=== PATIENT | female | born 1990 ===

== ENCOUNTER 2021-06-30 14:11 | Inpatient (IN) | payer BC ==
[2021-06-30 15:30] LABS: SARS-CoV-2 NAA Rapid Test DETECTED (NotDetected)
[2021-06-30 15:35] LABS: Hemoglobin 12.9 g/dL (12.0-15.5); Mean Corpuscular HGB CONC 35.4 g/dL (32.0-36.0); Mean Corpuscular Hemoglobin 33.6 pg (27.0-33.0); Mean Corpuscular Volume 94.8 fl (81.6-98.3); Mean Platelet Volume 9.6 fl (7.4-10.4); Platelet Count 171 10x3/uL (150-450); RBC Distribution Width 11.9 % (11.5-14.5); Red Blood Cell (RBC) Count 3.84 10x6/uL (3.90-5.03)
[2021-06-30 15:36] LABS: MDiff Complete? YES; Manual Diff?? YES
[2021-06-30 15:40] LABS: ALT (SGPT) 19 U/L (8-55); AST (SGOT) 28 U/L (5-34); Albumin 3.1 g/dL (3.5-5.0); Alkaline Phosphatase 118 U/L (40-110); Anion Gap 19 mmol/L (10-20); BUN (Urea Nitrogen) 7 mg/dL (7.0-18.7); Calc. Creatinine Clearance 0 mL/min (70-130); Calcium 8.7 mg/dL (7.8-10.44); Carbon Dioxide 11 mmol/L (22-29); Chloride 112 mmol/L (98-107); Globulin 3.3 g/dL (2.4-3.5); Glucose 77 mg/dL (70-105); Potassium 3.5 mmol/L (3.5-5.1); Protein, Total 6.4 g/dL (6.0-8.3); Sodium 138 mmol/L (136-145)
[2021-06-30 16:17] LABS: Band 2 % (5-11); Lymphocytes 4 % (21-51); Metamyelocyte 2 % (0-0); Monocytes 3 % (0-10); Myelocyte 1 % (0-0)
[2021-06-30 16:19] LABS: Neutrophil 88 % (42-75); Platelet Morphology Comment Appears Adequate; RBC Morphology Normal
[2021-06-30] MEDS ORDERED: Dexamethasone 10 MG/ML VIAL ONE (18:32)
[2021-06-30] MEDS ORDERED: Acetaminophen 325 MG TAB PO PRN (20:38)
[2021-06-30] MEDS ORDERED: GUAIFENESIN SF SOLN 200 MG/10 ML UDCUP PO PRN (20:39)
[2021-06-30 21:06] LABS: Lactic Acid 0.5 mmol/L (0.5-2.2)
[2021-06-30 21:48] VITALS: BMI 28.0
[2021-06-30] MEDS ORDERED: Lactated Ringer's 1,000 ML IV SCH (22:00)
[2021-06-30] MEDS ORDERED: Enoxaparin Sodium 40 MG/0.4 ML SYRINGE SC SCH (22:00)
[2021-07-01 04:37] LABS: ALV-art Gradient 123.185 mmHg (0-20); Actual Bicarbonate (HCO3a) 9.1 mEq/L (22-28); Base Excess (BEa) -15.8 mEq/L (-2.0 to +3.0); CO2 Tension 20.7 mmHg (35.0-45.0); Calcium, Ionized (arterial) 1.23 mmol/L (1.12-1.30); Carboxyhemoglobin (COHb) 0.3 gm% (0.0-3.0); Hemoglobin (Hb) 13.7 g/dL (12.0-16.0); O2 Tension (PaO2), arterial 79.1 mmHg (80.0-100.0); Potassium - ABG Lab 4.1 mmol/L (3.70-5.30); Puncture Site RRA; pH, Arterial 7.26 (7.35-7.45)
[2021-07-01 05:15] LABS: Bilirubin Neg (Negative); Blood, Urine Negative (Negative); Clarity Clear (Clear); Glucose, Urine (Dipstick) Normal (Negative); Ketone, Urine 150 mg/dL (Negative); Leukocyte 25 (Negative); Nitrite Negative (Negative); Protein, Urine (Dipstick) 100 mg/dl (Neg-Trace); Specific Gravity, Urine 1.025 (1.002-1.036)
[2021-07-01 06:33] LABS: Bacteria/HPF 1+ HPF (None Seen); RBC/HPF 0-3 HPF (0-3)
[2021-07-01 06:40] LABS: ALT (SGPT) 20 U/L (8-55); AST (SGOT) 27 U/L (5-34); Albumin 3.1 g/dL (3.5-5.0); Alkaline Phosphatase 123 U/L (40-110); Anion Gap 18 mmol/L (10-20); BUN (Urea Nitrogen) 8 mg/dL (7.0-18.7); CRP (Inflammatory) 20.31 mg/dL (= or < 0.5); Calc. Creatinine Clearance 121 mL/min (70-130); Calcium 9.1 mg/dL (7.8-10.44); Chloride 116 mmol/L (98-107); Globulin 3.4 g/dL (2.4-3.5); Glucose 94 mg/dL (70-105); Potassium 4.1 mmol/L (3.5-5.1); Protein, Total 6.5 g/dL (6.0-8.3); Sodium 138 mmol/L (136-145)
[2021-07-01 06:42] LABS: Hemoglobin 13.2 g/dL (12.0-15.5); Mean Corpuscular HGB CONC 33.9 g/dL (32.0-36.0); Mean Corpuscular Hemoglobin 32.8 pg (27.0-33.0); Mean Corpuscular Volume 96.8 fl (81.6-98.3); Mean Platelet Volume 9.5 fl (7.4-10.4); Platelet Count 201 10x3/uL (150-450); RBC Distribution Width 12.1 % (11.5-14.5); Red Blood Cell (RBC) Count 4.02 10x6/uL (3.90-5.03); White Blood Cell (WBC) Count 11.4 10x3/uL (3.5-10.5)
[2021-07-01 06:50] LABS: Carbon Dioxide 8 mmol/L (22-29)
[2021-07-01 07:16] LABS: Band 9 % (5-11); Lymphocytes 8 % (21-51); Metamyelocyte 2 % (0-0); Monocytes 5 % (0-10); Myelocyte 6 % (0-0); Reactive Lymphocytes 1 % (0-10)
[2021-07-01 07:17] LABS: Large Platelets SLIGHT; Neutrophil 69 % (42-75); Platelet Morphology Comment Appears Adequate
[2021-07-01 07:18] LABS: Manual Diff?? YES
[2021-07-01 07:22] LABS: MDiff Complete? YES; RBC Morphology Normal
[2021-07-01] MEDS: Ascorbic Acid 500 mg Chewable Tablet PO SCH (08:33)
[2021-07-01] MEDS: Cholecalciferol 1,000 UNITS (25 MCG) TAB PO SCH (08:33)
[2021-07-01] MEDS: Dexamethasone 4 mg/ml Vial SLOW IVP SCH (08:35)
[2021-07-01] MEDS: Enoxaparin Sodium 40 MG/0.4 ML SYRINGE SC SCH (08:35)
[2021-07-01] MEDS: Prenatal Vitamin 1 TAB PO SCH (08:35)
[2021-07-01] MEDS: Famotidine 20 MG TAB PO SCH (08:35)
[2021-07-01] MEDS ORDERED: REMDESIVIR 200 MG in Sodium Chloride 0.9% 250 ML 210 ML IV SCH (09:00)
[2021-07-01] MEDS ORDERED: Sodium Bicarb 50 MEQ/50 ML VIAL IVP SCH (10:00)
[2021-07-01] MEDS ORDERED: Lactated Ringer's 500 ML IV SCH (10:15)
[2021-07-01] MEDS: Ondansetron PF 4 MG/2 ML Vial IVP PRN (10:42)
[2021-07-01] MEDS: Sodium Bicarbonate 150 MEQ in Dextrose 5% in Water 1,000 ML IV SCH (11:57)
[2021-07-01 13:13] LABS: ALT (SGPT) 18 U/L (8-55); AST (SGOT) 25 U/L (5-34); Albumin 2.8 g/dL (3.5-5.0); Alkaline Phosphatase 114 U/L (40-110); Anion Gap 18 mmol/L (10-20); BUN (Urea Nitrogen) 9 mg/dL (7.0-18.7); CK (CPK) 83 U/L (29-168); Calc. Creatinine Clearance 127 mL/min (70-130); Calcium 8.8 mg/dL (7.8-10.44); Chloride 116 mmol/L (98-107); Globulin 3.1 g/dL (2.4-3.5); Glucose 97 mg/dL (70-105); Potassium 4.1 mmol/L (3.5-5.1); Protein, Total 5.9 g/dL (6.0-8.3); Sodium 138 mmol/L (136-145)
[2021-07-01 13:28] LABS: Carbon Dioxide 8 mmol/L (22-29)
[2021-07-01] MEDS ORDERED: Dextrose 5% in Water 1,000 ML ONE (13:54)
[2021-07-01 18:25] LABS: Anion Gap 17 mmol/L (10-20); BUN (Urea Nitrogen) 9 mg/dL (7.0-18.7); Calc. Creatinine Clearance 138 mL/min (70-130); Calcium 8.8 mg/dL (7.8-10.44); Carbon Dioxide 12 mmol/L (22-29); Chloride 112 mmol/L (98-107); Glucose 118 mg/dL (70-105); Potassium 3.7 mmol/L (3.5-5.1); Sodium 137 mmol/L (136-145)
[2021-07-01] MEDS: cefTRIAXone\\ROCEPHIN 1 GM in Sodium Chloride 0.9% 100 ML IVPB SCH (18:49)
[2021-07-01 19:56] LABS: Actual Bicarbonate (HCO3a) 16.7 mEq/L (22-28); Base Excess (BEa) -6.5 mEq/L (-2.0 to +3.0); CO2 Tension 26.7 mmHg (35.0-45.0); Calcium, Ionized (arterial) 1.17 mmol/L (1.12-1.30); Carboxyhemoglobin (COHb) 0.3 gm% (0.0-3.0); O2 Tension (PaO2), arterial 98.4 mmHg (80.0-100.0); Potassium - ABG Lab 3.6 mmol/L (3.70-5.30); Puncture Site RRA; pH, Arterial 7.41 (7.35-7.45)
[2021-07-01 19:58] LABS: ALV-art Gradient 96.385 mmHg (0-20)
[2021-07-02] MEDS: Famotidine 20 MG TAB PO SCH ×3 (01:29→21:07)
[2021-07-02] MEDS: Enoxaparin Sodium 40 MG/0.4 ML SYRINGE SC SCH ×3 (01:29→21:08)
[2021-07-02] MEDS: Ondansetron PF 4 MG/2 ML Vial IVP PRN ×2 (01:29→11:47)
[2021-07-02 06:50] LABS: ALT (SGPT) 16 U/L (8-55); AST (SGOT) 22 U/L (5-34); Albumin 2.5 g/dL (3.5-5.0); Alkaline Phosphatase 99 U/L (40-110); Anion Gap 14 mmol/L (10-20); BUN (Urea Nitrogen) 13 mg/dL (7.0-18.7); Bilirubin, Total 0.7 mg/dL (0.2-1.2); Calc. Creatinine Clearance 148 mL/min (70-130); Calcium 8.5 mg/dL (7.8-10.44); Carbon Dioxide 16 mmol/L (22-29); Chloride 112 mmol/L (98-107); Globulin 2.8 g/dL (2.4-3.5); Glucose 90 mg/dL (70-105); Potassium 3.5 mmol/L (3.5-5.1); Protein, Total 5.3 g/dL (6.0-8.3); Sodium 138 mmol/L (136-145)
[2021-07-02 06:52] LABS: Hemoglobin 11.8 g/dL (12.0-15.5); Mean Corpuscular HGB CONC 34.9 g/dL (32.0-36.0); Mean Corpuscular Hemoglobin 32.9 pg (27.0-33.0); Mean Corpuscular Volume 94.2 fl (81.6-98.3); Mean Platelet Volume 9.2 fl (7.4-10.4); Platelet Count 230 10x3/uL (150-450); RBC Distribution Width 11.8 % (11.5-14.5); Red Blood Cell (RBC) Count 3.59 10x6/uL (3.90-5.03)
[2021-07-02] MEDS: Lactated Ringer's 1,000 ML IV SCH ×4 (07:52→22:34)
[2021-07-02] MEDS ORDERED: Potassium Chloride 20 MEQ TAB PO SCH (08:00)
[2021-07-02] MEDS: Prenatal Vitamin 1 TAB PO SCH (08:02)
[2021-07-02] MEDS: Ascorbic Acid 500 mg Chewable Tablet PO SCH (08:02)
[2021-07-02] MEDS: Cholecalciferol 1,000 UNITS (25 MCG) TAB PO SCH (08:02)
[2021-07-02] MEDS: Dexamethasone 4 mg/ml Vial SLOW IVP SCH (08:02)
[2021-07-02 08:16] LABS: Band 9 % (5-11); Lymphocytes 6 % (21-51); Metamyelocyte 6 % (0-0); Monocytes 5 % (0-10); Myelocyte 5 % (0-0); Neutrophil 68 % (42-75); Reactive Lymphocytes 1 % (0-10)
[2021-07-02 08:17] LABS: MDiff Complete? YES; Manual Diff?? YES; Platelet Morphology Comment Appears Adequate; Small Platelets MODERATE
[2021-07-02 08:18] LABS: RBC Morphology Normal
[2021-07-02] MEDS: Sodium Bicarbonate 150 MEQ in Dextrose 5% in Water 1,000 ML IV SCH (11:47)
[2021-07-02] MEDS: REMDESIVIR 100 MG in Sodium Chloride 0.9% 250 ML 230 ML IV SCH (11:47)
[2021-07-02 12:28] VITALS: TEMP 97.7
[2021-07-02 13:09] VITALS: BP 107/60
[2021-07-02] MEDS ORDERED: Mometasone Furoate 30 PUFF 220 MCG INH SCH (18:30)
[2021-07-02] MEDS: cefTRIAXone\\ROCEPHIN 1 GM in Sodium Chloride 0.9% 100 ML IVPB SCH (18:34)
[2021-07-02] MEDS: Mometasone Furoate 30 PUFF 220 MCG INH SCH (20:30)
[2021-07-02 20:33] LABS: Anion Gap 13 mmol/L (10-20); BUN (Urea Nitrogen) 13 mg/dL (7.0-18.7); Calc. Creatinine Clearance 131 mL/min (70-130); Calcium 8.3 mg/dL (7.8-10.44); Carbon Dioxide 21 mmol/L (22-29); Chloride 110 mmol/L (98-107); Glucose 119 mg/dL (70-105); Potassium 3.7 mmol/L (3.5-5.1); Sodium 140 mmol/L (136-145)
[2021-07-03 07:01] LABS: Hemoglobin 11.5 g/dL (12.0-15.5); Mean Corpuscular HGB CONC 34.8 g/dL (32.0-36.0); Mean Corpuscular Volume 94.8 fl (81.6-98.3); Mean Platelet Volume 9.1 fl (7.4-10.4); Phosphorus 2.5 mg/dL (2.3-4.7); Platelet Count 239 10x3/uL (150-450); RBC Distribution Width 11.6 % (11.5-14.5); Red Blood Cell (RBC) Count 3.48 10x6/uL (3.90-5.03)
[2021-07-03 07:03] LABS: Anion Gap 11 mmol/L (10-20); BUN (Urea Nitrogen) 14 mg/dL (7.0-18.7); CRP (Inflammatory) 2.57 mg/dL (= or < 0.5); Calc. Creatinine Clearance 148 mL/min (70-130); Calcium 8.2 mg/dL (7.8-10.44); Carbon Dioxide 23 mmol/L (22-29); Chloride 110 mmol/L (98-107); Glucose 83 mg/dL (70-105); Magnesium 1.8 mg/dL (1.6-2.6); Potassium 3.5 mmol/L (3.5-5.1); Sodium 140 mmol/L (136-145)
[2021-07-03] MEDS: Mometasone Furoate 30 PUFF 220 MCG INH SCH ×2 (07:40→20:15)
[2021-07-03 08:04] LABS: Band 7 % (5-11); Lymphocytes 11 % (21-51); Metamyelocyte 2 % (0-0); Myelocyte 5 % (0-0); Reactive Lymphocytes 5 % (0-10)
[2021-07-03 08:06] LABS: Monocytes 4 % (0-10); Neutrophil 66 % (42-75)
[2021-07-03 08:08] LABS: Dohle Bodies SLIGHT; Large Platelets SLIGHT; Platelet Morphology Comment Appears Adequate; Toxic Granulation SLIGHT
[2021-07-03 08:09] LABS: MDiff Complete? YES; Manual Diff?? YES; RBC Morphology Normal
[2021-07-03] MEDS: Famotidine 20 MG TAB PO SCH ×2 (10:00→21:14)
[2021-07-03] MEDS ORDERED: Magnesium 2 GM/50 ML 2 GM in Premix Bag 1 BAG IVPB SCH (10:00)
[2021-07-03] MEDS ORDERED: Potassium Chloride 20 MEQ TAB PO SCH (10:00)
[2021-07-03] MEDS: Enoxaparin Sodium 40 MG/0.4 ML SYRINGE SC SCH ×2 (10:20→21:15)
[2021-07-03] MEDS: Dexamethasone 4 mg/ml Vial SLOW IVP SCH (10:20)
[2021-07-03] MEDS: Cholecalciferol 1,000 UNITS (25 MCG) TAB PO SCH (10:21)
[2021-07-03] MEDS: Ascorbic Acid 500 mg Chewable Tablet PO SCH (10:21)
[2021-07-03] MEDS: REMDESIVIR 100 MG in Sodium Chloride 0.9% 250 ML 230 ML IV SCH (11:17)
[2021-07-03] MEDS: cefTRIAXone\\ROCEPHIN 1 GM in Sodium Chloride 0.9% 100 ML IVPB SCH (18:19)
[2021-07-03] MEDS: Lactated Ringer's 1,000 ML IV SCH (22:50)
[2021-07-04 08:00] LABS: ALT (SGPT) 33 U/L (8-55); AST (SGOT) 38 U/L (5-34); Albumin 2.3 g/dL (3.5-5.0); Alkaline Phosphatase 86 U/L (40-110); Anion Gap 12 mmol/L (10-20); BUN (Urea Nitrogen) 10 mg/dL (7.0-18.7); Calc. Creatinine Clearance 142 mL/min (70-130); Carbon Dioxide 23 mmol/L (22-29); Chloride 109 mmol/L (98-107); Globulin 2.2 g/dL (2.4-3.5); Potassium 3.7 mmol/L (3.5-5.1); Protein, Total 4.5 g/dL (6.0-8.3); Sodium 140 mmol/L (136-145)
[2021-07-04] MEDS: Prenatal Vitamin 1 TAB PO SCH ×2 (08:34→11:07)
[2021-07-04] MEDS: Famotidine 20 MG TAB PO SCH (08:35)
[2021-07-04] MEDS: Cholecalciferol 1,000 UNITS (25 MCG) TAB PO SCH (08:35)
[2021-07-04] MEDS: Ascorbic Acid 500 mg Chewable Tablet PO SCH (08:36)
[2021-07-04] MEDS: Dexamethasone 4 mg/ml Vial SLOW IVP SCH (08:37)
[2021-07-04] MEDS: Enoxaparin Sodium 40 MG/0.4 ML SYRINGE SC SCH (08:39)
[2021-07-04 08:58] LABS: Hemoglobin 10.8 g/dL (12.0-15.5); MDiff Complete? YES; Mean Corpuscular HGB CONC 34.3 g/dL (32.0-36.0); Mean Corpuscular Hemoglobin 32.3 pg (27.0-33.0); Mean Corpuscular Volume 94.3 fl (81.6-98.3); Mean Platelet Volume 8.7 fl (7.4-10.4); Platelet Count 247 10x3/uL (150-450); RBC Distribution Width 11.7 % (11.5-14.5); Red Blood Cell (RBC) Count 3.34 10x6/uL (3.90-5.03); White Blood Cell (WBC) Count 7.6 10x3/uL (3.5-10.5)
[2021-07-04] MEDS: Mometasone Furoate 30 PUFF 220 MCG INH SCH (08:58)
[2021-07-04 09:04] LABS: Band 3 % (5-11); Lymphocytes 28 % (21-51); Monocytes 5 % (0-10); Neutrophil 64 % (42-75)
[2021-07-04 09:05] LABS: Platelet Morphology Comment Appears Adequate
[2021-07-04 09:06] LABS: RBC Morphology Normal
[2021-07-04] MEDS: Lactated Ringer's 1,000 ML IV SCH ×2 (09:06→11:07)
[2021-07-04 09:11] LABS: Bilirubin, Total 0.4 mg/dL (0.2-1.2); Calcium 8.2 mg/dL (7.8-10.44); Glucose 79 mg/dL (70-105)
[2021-07-04] MEDS: REMDESIVIR 100 MG in Sodium Chloride 0.9% 250 ML 230 ML IV SCH (10:55)
== END 2021-07-04 16:15 | disposition home or self-care (01) | DRG 831 ==
LOC: CSHERS 14:11 → CSHLD 21:22 → CSHANTE 21:27 → CSHLD 07-02 13:41
PROVIDERS: ADMIT Obstetrics & Gynecology; ATTEND Internal Medicine
PROC: 8E0ZXY6 Isolation (ICD-10-PCS; principal; 2021-06-30)
PROC: XW033E5 Introduction of Remdesivir Anti-infective into Peripheral Vein, Percutaneous Approach, New Technology Group 5 (ICD-10-PCS; 2021-06-30)
DX: O98.513 Other viral diseases complicating pregnancy, third trimester (principal); U07.1 COVID-19; J12.82 Pneumonia due to coronavirus disease 2019; J96.01 Acute respiratory failure with hypoxia; E87.2 Acidosis; O23.43 Unspecified infection of urinary tract in pregnancy, third trimester; O99.513 Diseases of the respiratory system complicating pregnancy, third trimester; Z3A.34 34 weeks gestation of pregnancy
CPT/HCPCS: 0240U; 36415; 36600; 59025; 71045; 80048; 80053; 81001; 82010; 82550; 82728; 82805; 83605; 83735; 84100; 84145; 85025; 85379; 86140; 87086; 93970; 94664; 94760; 94799; 96374; J0696; J1100; J1650; J2405; J3475; J3490; J7050; J7070; J7120